=== PATIENT | male | born 1955 | race Hispanic/Latino ===

== ENCOUNTER 2019-07-02 14:15 | Emergency (ER) | payer SELFPAY ==
[~2019-07-02] VITALS: Ht 167.6 cm; Wt 75.0 kg
[~2019-07-02 14:15] MED LIST: ADULT ASPIRIN L81 MG PO; ASPIRIN325 MG PO; ATORVASTATIN CA80 MG PO; BL ASPIRIN325 MG PO; CLOPIDOGREL75 MG PO; COUMADIN5 MG PO; DSS100 MG PO; LISI20TA5; LISINOPRIL5 MG PO; METOPROLOL SUCC25 MG PO; PANTOPRAZOLE SO40 MG PO; ZESTRIL5 M1 PO
[2019-07-02] MEDS ORDERED: ISOSORB MONO60 M1 PO (15:00)
[2019-07-02] MEDS ORDERED: ATORVASTATIN CA80 MG PO (15:00)
[2019-07-02] MEDS ORDERED: LISINOPRIL5 MG PO (15:01)
[2019-07-02] MEDS ORDERED: PLAVIX75 MG PO (15:02)
[2019-07-02] MEDS ORDERED: KEFLEX500 M1 PO (15:28)
[2019-07-02 15:35] VITALS: BP 129/79
== END 2019-07-02 15:35 | disposition home or self-care (01) | DRG 603 ==
LOC: ED 14:15
DX: L03.116 Cellulitis of left lower limb (principal); I10 Essential (primary) hypertension; I25.10 Atherosclerotic heart disease of native coronary artery without angina pectoris; Z95.5 Presence of coronary angioplasty implant and graft; Z95.0 Presence of cardiac pacemaker

== ENCOUNTER 2024-11-04 14:55 | Emergency (ER) | payer MEDICARE ==
[~2024-11-04] VITALS: Ht 167.6 cm; Wt 82.0 kg
[2024-11-04] VITALS (7 sets, daily range): BP systolic 122–144; BP diastolic 75–110
[~2024-11-04 14:55] MED LIST changes: +ISOSORB MONO60 M1 PO; +KEFLEX500 M1 PO; +PLAVIX75 MG PO
[2024-11-04] MEDS ORDERED: NITROGLYCERIN 0.4 MG/TAB SL ONE (15:15)
[2024-11-04] MEDS ORDERED: ASPIRIN 81 MG/TAB PO ONE (15:15)
[2024-11-04 15:55] LABS: BASO% 0.6 % (0-3); HEMATOCRIT 36.4 % (39.0-50.0); IMMATURE GRANULOCYTES 0.4 % (0.0-5.0); LYMPH% 16.4 % (15-41); MEAN CELL VOLUME 106.1 fL CALC (80.0-100.0); MONO% 10.8 % (2-13); NEUT# 4.93 thou/uL (1.82-7.42); NEUT% 70.8 % (42-76); RED BLOOD COUNT 3.43 mill/uL (4.70-6.10); RED CELL DISTRI WIDTH 14.4 % (11.5-15.5)
[2024-11-04 16:05] LABS: ALBUMIN 4.6 g/dL (3.2-5.0); POTASSIUM 3.8 mmol/l (3.5-5.1); TOTAL PROTEIN 7.3 g/dL (6.3-8.2)
[2024-11-04 16:06] LABS: BILIRUBIN, TOTAL 2.7 mg/dL (0.2-1.3)
[2024-11-04 17:57] LABS: URINE BILIRUBIN - DIPSTICK Negative (NEGATIVE); URINE BLOOD DIPSTICK Moderate (NEGATIVE); URINE GLUCOSE - DIPSTICK Negative (NEGATIVE); URINE KETONE Trace mg/dL (NEGATIVE); URINE LEUK ESTERASE Negative (NEGATIVE); URINE NITRITE - DIPSTICK Negative (Negative); URINE PH 5.5 (4.5-8.0); URINE PROTEIN - DIPSTICK Trace mg/dL (NEG-TRACE); URINE SPECIFIC GRAVITY 1.025; URINE UROBILINOGEN - DIPSTICK 0.2 E.U./dL (0.2)
[2024-11-04 17:58] LABS: URINE COLOR Yellow
[2024-11-04 18:13] LABS: URINE WBC 0-2 WBC/hpf (0-5)
== END 2024-11-04 18:12 | disposition left against medical advice (07) ==
LOC: ED 14:55
PROVIDERS: Nurse Practitioner
DX: R07.9 Chest pain, unspecified (principal); I10 Essential (primary) hypertension; I25.10 Atherosclerotic heart disease of native coronary artery without angina pectoris; Z95.810 Presence of automatic (implantable) cardiac defibrillator; Z95.5 Presence of coronary angioplasty implant and graft; Z53.29 Procedure and treatment not carried out because of patient's decision for other reasons